=== PATIENT | male | born 1985 | race Caucasian/White ===

== ENCOUNTER 2020-08-22 02:31 | Inpatient (IN) | payer OTHER ==
[2020-08-22] VITALS (7 sets, daily range): BP systolic 123–147; BP diastolic 69–98
[~2020-08-22] VITALS: Ht 185.4 cm; Wt 72.6 kg
[2020-08-22 02:52] LABS: ABSOLUTE BASOPHILS 0.1 thou/uL (0.0-0.2); ABSOLUTE EOSINOPHILS 0.2 thou/uL (0.0-0.7); ABSOLUTE LYMPHOCYTES 2.6 thou/uL (0.8-5.3); ABSOLUTE MONOCYTES 0.6 thou/uL (0.0-1.2); ABSOLUTE NEUTROPHILS 8.9 thou/uL (1.6-8.1); BASOPHILS 0.7 %; EOSINOPHILS 1.7 %; HEMATOCRIT 42.2 % (42.0-52.0); HEMOGLOBIN 14.7 gm/dL (14.0-18.0); LYMPHOCYTES 20.7 %; MCH 33.2 pg (26.0-34.0); MCHC 34.8 g/dL (28.0-37.0); MCV 95.4 fL (80.0-100.0); MONOCYTES 5.1 %; MPV 5.8 fl. (7.2-11.1); NUCLEATED RBCS 0 /100WBC; PLATELET COUNT* 331 thou/uL (150-400); POLYS 71.8 %; RBC 4.42 mil/uL (4.50-6.00); RDW-CV 13.4 % (10.5-14.5); WBC 12.4 thou/uL (4.0-11.0)
[2020-08-22 02:55] LABS: URINE BILIRUBIN NEGATIVE (Negative); URINE BLOOD NEGATIVE (Negative); URINE CLARITY CLEAR; URINE COLOR YELLOW; URINE GLUCOSE-RANDOM NEGATIVE (Negative); URINE KETONES NEGATIVE (Negative); URINE LEUKOCYTES-REFLEX NEGATIVE (Negative); URINE NITRITE-REFLEX NEGATIVE (Negative); URINE PROTEIN TRACE (Negative); URINE SPECIFIC GRAVITY 1.015 (1.005-1.030); URINE UROBILINOGEN 0.2 E.U./dl (0.2-1.0)
[2020-08-22 03:03] LABS: AMP/METHAMP Negative (Negative); BARBITURATES Negative (Negative); BENZODIAZEPINES Negative (Negative); COCAINE Negative (Negative); METHADONE Negative (Negative); OPIATES Negative (Negative); PCP Negative (Negative); THC Negative (Negative)
[2020-08-22 03:03] LABS: CALCIUM 9.3 mg/dL (8.5-10.1); CREATININE 1.4 mg/dL (0.6-1.3); POTASSIUM 3.7 mmol/L (3.5-5.1)
[2020-08-22 03:09] LABS: ALBUMIN 4.5 g/dL (3.4-5.0); TOTAL BILIRUBIN 0.6 mg/dL (<0.1-1.0); TOTAL PROTEIN 7.7 g/dL (6.4-8.2)
--- NOTE | 2020-08-22 12:49 | EKG ---
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1985 Requested By: Angelique Baxter Order Number: [id number] MD: Doni Palmer Measurements Intervals [place] Rate: 94 P: 48 NE: 141 QRS: 47 QRSD: 91 T: 35 QT: 354 QTc: 443 Interpretive Statements Sinus rhythm RSR' in V1 or V2, probably normal variant Minimal ST elevation, anterior leads No previous ECG available for comparison Electronically Signed On 08-22-2020 12:49:44 HAND FORMER by Doni Palemr [email or web address] <ELECTRONICALLY SIGNED> By: Rupesh Palmer MD, [facility] 08/22/20 1249 6 6 Rupesh Palmer MD, [facility] /EPI
[2020-08-23 00:30] VITALS: BP 119/72
[2020-08-23 05:04] VITALS: BP 104/61
--- NOTE | 2020-08-23 05:06 | NUR ---
Admit last evening at 2100. He has pancreatitis. He does have mid-abdominal pain,he rates at 7. He had pain med x1. Heart sinus rhythym. Lungs clear to ausclutation. He has slept intermittenly.
[2020-08-23 07:30] VITALS: BP 118/57
--- NOTE | 2020-08-23 09:58 | NUR ---
CM SPOKE TO THE PT TO DISCUSS CM ASSESSMENT. PT A&O, INDEPENDENT WITH ADL'S, AND ACTIVE. PT USES 0 DME. REVIEW OF PT'S CHART INFORMS THAT HE IS UNINSURED. HOWEVER PT INFORMS THAT HE DOES HAVE INSURANCE, BUT IT WAS NOT TAKEN IN THE ER. PT PROVIDED CM HIS CARD. CM FAXED A COPY OF PT'S CARD TO ADMITTING ER. CM WILL REMAIN AVAILABLE TO ASSIST AND FOLLOW NEEDED.
[2020-08-23 11:26] VITALS: BP 111/61
[2020-08-23 12:07] LABS: ABSOLUTE EOSINOPHILS 0.4 thou/uL (0.0-0.7); ABSOLUTE LYMPHOCYTES 2.4 thou/uL (0.8-5.3); ABSOLUTE MONOCYTES 0.5 thou/uL (0.0-1.2); ABSOLUTE NEUTROPHILS 3.1 thou/uL (1.6-8.1); BASOPHILS 0.5 %; EOSINOPHILS 6.5 %; HEMATOCRIT 34.5 % (42.0-52.0); HEMOGLOBIN 11.9 gm/dL (14.0-18.0); LYMPHOCYTES 36.5 %; MCH 33.8 pg (26.0-34.0); MCHC 34.3 g/dL (28.0-37.0); MCV 98.3 fL (80.0-100.0); MONOCYTES 8.2 %; MPV 6.3 fl. (7.2-11.1); NUCLEATED RBCS 0 /100WBC; PLATELET COUNT* 222 thou/uL (150-400); POLYS 48.3 %; RBC 3.51 mil/uL (4.50-6.00); RDW-CV 13.6 % (10.5-14.5); WBC 6.5 thou/uL (4.0-11.0)
--- NOTE | 2020-08-23 12:12 | CON ---
[address] [address] CONSULTATION Name: RIP DE JESSU Room: [address] Jazmin Crow#: [id number] Admission: 08/22/20 Attend Phys: Arnulfo Hensley MD Discharge: Date of : 85 Report #: [id number] THIS REPORT FOR: cc: FAM - No family physician/PCP FAM - No family physician/PCP ~ Gregorio Giordano MD DATE OF SERVICE: 08/23/2020 The patient does not have a PCP. Please note at the time of this dictation, the patient was seen and physically examined by myself. REASON FOR CONSULTATION: Abdominal pain and pancreatitis. HISTORY OF PRESENT ILLNESS: This is a 35-year-old male who presented to the Emergency Room with severe abdominal pain, nausea and vomiting. He denied any fever and chills. He states that his pain has been intermittent off and on, but this time, it got significantly worse. He has a past history of known pancreatitis in which he was hospitalized back in May at [facility]. We will obtain those records. He had imaging done at that time to look at a comparison of the cysts that is noted currently. The patient states that 6 years ago, he was drinking heavily on a daily basis. He has since cut back. His first episode of known pancreatitis that he was aware of was back in 2018 in which he has had some hospitalizations off and on when the severity of his pancreatitis gets back. He has never been placed on pancreatic enzymes. He states that currently he only drinks 3-4 drinks maybe twice a week now at the most. ALLERGIES: No known drug allergies. MEDICATIONS FROM HOME: None. PAST MEDICAL HISTORY: Pancreatitis. PAST SURGICAL HISTORY: None. FAMILY HISTORY: Negative for any GI or female cancers. SOCIAL HISTORY: He does smoke about a half a pack per day. He denies any illegal drug use and he drinks about twice a week 3-4 hard liquor drinks. REVIEW OF SYSTEMS: Twelve-point review of systems is essentially negative except [place] [address] CONSULTATION Name: RIP DE JESUS Room: [address] Jazmin Crow#: [id number] Admission: 08/22/20 Attend Phys: Arnulfo Hensley MD Discharge: Date of : 85 Report #: [id number] PHYSICAL EXAMINATION: VITAL SIGNS: Temperature 36.5, pulse 65, respirations 18, blood pressure 104/61. HEART: Regular rate and rhythm. LUNGS: Clear. ABDOMEN: Soft, positive bowel sounds in all 4 quadrants with upper abdominal pain, noted to palpation. LABORATORY DATA: Hemoglobin is 14.7, white count is 12.4, platelets are 331. GFR is 58. LFTs are completely normal. His lipase is 22,374. Positive for alcohol on drug screen. CT of the abdomen and pelvis shows acute superimposed chronic pancreatitis with a cystic mass at the head of 1.8 cm x 3.8 cm needing to rule out any neoplasm at this time. IMPRESSION: 1. Abdominal pain, upper. 2. Nausea and vomiting, resolved. 3. Pancreatitis with cystic formation. 4. Alcohol abuse. PLAN: 1. Increase his IV fluids 250 mL an hour. 2. Ice chips. 3. Obtain his records from [facility] from 05/2020, GET. 4. CA 19-9 today. We will check CBC, CMP and amylase for tomorrow. 5. Once we are able to obtain CT results from May for comparison, we will consider and discuss with Dr. Giordano about possibly IR intervention to drain the cyst and sent off for cytology. 6. Further recommendations to be made once Dr. Giordano sees the patient. Thank you for allowing us to participate in this patient's care. Please do not hesitate to call with any questions in regard to this consult. <ELECTRONICALLY SIGNED> By: Gregorio Giordano MD 08/23/20 1212 0926 [id number] Giordano MD /nt
[2020-08-23 12:19] LABS: ALBUMIN 3.2 g/dL (3.4-5.0); CALCIUM 8.5 mg/dL (8.5-10.1); CREATININE 1.1 mg/dL (0.6-1.3); MAGNESIUM 1.7 mg/dL (1.8-2.4); POTASSIUM 3.5 mmol/L (3.5-5.1); TOTAL BILIRUBIN 1.4 mg/dL (<0.1-1.0); TOTAL PROTEIN 5.9 g/dL (6.4-8.2)
[2020-08-23 16:57] VITALS: BP 123/65
[2020-08-23 20:00] VITALS: BP 125/69
[2020-08-24] VITALS: BP 112/61
[2020-08-24 04:00] VITALS: BP 122/62
[2020-08-24 04:29] LABS: HEMOGLOBIN 11.3 gm/dL (14.0-18.0); MCH 33.9 pg (26.0-34.0); MCHC 35.3 g/dL (28.0-37.0); RBC 3.33 mil/uL (4.50-6.00); RDW-CV 13.6 % (10.5-14.5); WBC 7.8 thou/uL (4.0-11.0)
[2020-08-24 04:48] LABS: ALBUMIN 2.9 g/dL (3.4-5.0); POTASSIUM 3.4 mmol/L (3.5-5.1); TOTAL BILIRUBIN 1.4 mg/dL (<0.1-1.0); TOTAL PROTEIN 5.4 g/dL (6.4-8.2)
--- NOTE | 2020-08-24 07:39 | NUR ---
ASSUMED CARE OF PT AFTER REPORT AT 1930. PT A&OX4. VSS. PHYSICAL ASSESSMENT COMPLETED AND CHARTED. PT ON RA. PT TRACING SR/SB ON TELE. PT UPADLIB TO RESTROOM. PT COMPLAINED OF STOMACH PAIN-MED GIVEN PER OCT. PT ABLE TO SLEEP WELL ON BED. CALL LIGHT WITHIN REACH.
[2020-08-24 08:00] VITALS: BP 127/71
--- NOTE | 2020-08-24 11:24 | NUR ---
CM INFORMED DURING PRIME ROUNDING OF THE PLAN OF CARE FOR THE PT. GI FOLOWING. PLAN FOR PT TO POSSIBLY D/C TOMORROW. CM TO PROVIDE PT WITH COMMUNITY RESOURCE LIST FOR ETOH TREATMENT. NO OTHER CM D/C PLANNING NEEDS ANTICIPATED. CM WILL REMAIN AVAILABLE TO ASSIST AND FOLLOW NEEDED.
[2020-08-24 12:00] VITALS: BP 116/66
[2020-08-24] MEDS ORDERED: HYDROCODON-ACE1 EAC7 PO (14:38)
[2020-08-24] MEDS ORDERED: ONDANSETRON HCL4 M2 PO (14:38)
[2020-08-24 15:55] VITALS: BP 116/66
== END 2020-08-24 17:30 | disposition home or self-care (01) | DRG 439 ==
LOC: M.ERS 02:31 → M.TBA-ER 03:46 → M.2W 20:54
PROVIDERS: Internal Medicine; Nurse Practitioner Adult Health; Personal Emergency Response Attendant; ADMIT Internal Medicine; ATTEND Internal Medicine
DX: K85.20 Alcohol induced acute pancreatitis without necrosis or infection (principal); R65.10 Systemic inflammatory response syndrome (SIRS) of non-infectious origin without acute organ dysfunction; K86.2 Cyst of pancreas; F10.129 Alcohol abuse with intoxication, unspecified; Z79.899 Other long term (current) drug therapy